=== PATIENT | female | born 1975 | race African-American/Black ===

== ENCOUNTER 2017-07-17 10:20 | Emergency (ER) | payer OTHER, SELFPAY ==
[2017-07-17] MEDS ORDERED: Dexamethasone 4 mg/ml Vial ONE (10:56)
[2017-07-17] MEDS ORDERED: Acetaminophen/Codeine 30-300mg Tablet ONE (10:56)
== END 2017-07-17 11:29 | disposition home or self-care (01) ==
LOC: SCSER 10:20
DX: J06.9 Acute upper respiratory infection, unspecified (principal)
CPT/HCPCS: 96372; J1100